=== PATIENT | male | born 1955 | race Asian ===

== ENCOUNTER 2018-03-23 22:10 | Inpatient (IN) | payer SELFPAY ==
[~2018-03-23] VITALS: Ht 180.3 cm; Wt 111.1 kg
[~2018-03-23 22:10] MED LIST: SUCRALFATE
[2018-03-23] MEDS ORDERED: SODIUM CHLORIDE 0.9% 1,000 ML IV ONE (22:55)
[2018-03-23] MEDS ORDERED: ONDANSETRON HCL 4MG/2ML INJ IV STA (22:55)
[2018-03-23] MEDS ORDERED: MORPHINE SULFATE 4 MG/ML CPJ (NOT FOR IM USE) IV STA (22:55)
[2018-03-23] MEDS ORDERED: ASPIRIN 81MG TABLET PO ONE (23:00)
[2018-03-23] MEDS ORDERED: NITROGLYCERIN 0.4MG TABLET SL SL PRN (23:00)
[2018-03-23 23:27] LABS: BASOPHILS % 0.7 % (0.0-2.0); EOSINOPHILS % 0.8 % (0.0-5.0); HEMATOCRIT. 45.3 % (42.0-52.0); HEMOGLOBIN. 14.9 g/dL (14.0-18.0); LYMPHOCYTES % 23.7 % (20.0-50.0); MEAN CORPUSCULAR HEMOGLOBIN 27.9 pg (28.0-32.0); MEAN CORPUSCULAR VOLUME 84.7 fL (80.0-94.0); MEAN PLATELET VOLUME 8.6 fl (7.4-10.4); MONOCYTES % 10.3 % (2.0-8.0); NEUTROPHILS % 64.5 % (40.0-76.0); PLATELET 319 x1000/uL (130-400); RED BLOOD CELL COUNT 5.35 mill/uL (4.7-6.1); RED CELL DISTRIBUTION WIDTH 14.3 % (11.6-14.6)
[2018-03-23 23:33] LABS: CHLORIDE 96 mEq/L (98-107)
[2018-03-23 23:43] LABS: D-DIMER < 0.19 mg/L FEU (<0.50); PARTIAL THROMBOPLASTIN TIME 28.2 sec (23.4-31.0); PROTHROMBIN TIME 10.2 sec (9.1-11.1)
[2018-03-24] MEDS ORDERED: CLONIDINE 0.1MG TABLET PO PRN (01:15)
[2018-03-24] MEDS ORDERED: ACETAMINOPHEN 325MG TABLET PO PRN (01:15)
[2018-03-24] MEDS ORDERED: ENOXAPARIN 40MG/0.4ML SYR SUBCUT SCH (01:15)
[2018-03-24] MEDS ORDERED: POTASSIUM CHLORIDE 20MEQ TABLET SR PO PRN ×2 (01:15→04:15)
[2018-03-24] MEDS ORDERED: ONDANSETRON HCL 4MG/2ML INJ IV PRN (01:15)
[2018-03-24 02:31] LABS: CHLORIDE 101 mEq/L (98-107)
[2018-03-24] MEDS ORDERED: DEXTROSE 50% WATER 50ML SYRINGE IV PRN ×2 (04:00→04:15)
[2018-03-24] MEDS ORDERED: ONDANSETRON 4MG ODT PO PRN (04:15)
[2018-03-24 05:15] VITALS: BP 112/70
[2018-03-24] MEDS: BLOOD SUGAR DIAGNOSTIC STRIP TEST SCH ×4 (05:42→20:10)
[2018-03-24] MEDS: INSULIN LISPRO 100 UNITS/ML SUBCUT SCH ×4 (06:00→21:32)
[2018-03-24 08:00] VITALS: BP 112/72
[2018-03-24] MEDS ORDERED: INSULIN LISPRO 100 UNITS/ML SUBCUT SCH (08:20)
[2018-03-24] MEDS ORDERED: ATORVASTATIN CALCIUM 20MG TABLET PO SCH (09:00)
[2018-03-24] MEDS: ENOXAPARIN 30MG/0.3ML SYR SUBCUT SCH ×2 (09:00→20:08)
[2018-03-24] MEDS ORDERED: BLOOD SUGAR DIAGNOSTIC STRIP TEST SCH (09:00)
[2018-03-24 12:00] VITALS: BP 127/84
[2018-03-24 15:03] LABS: *AMPHETAMINES SCREEN URINE NEGATIVE (NEGATIVE); *BARBITURATES SCREEN URINE NEGATIVE (NEGATIVE)
[2018-03-24 15:04] LABS: *BENZODIAZEPINES SCREEN URINE NEGATIVE (NEGATIVE); *COCAINE SCREEN URINE NEGATIVE (NEGATIVE); CANNABINOID URINE SCREEN NEGATIVE (NEGATIVE); METHADONE URINE SCREEN NEGATIVE (NEGATIVE); OPIATES URINE SCREEN PRESUMTIVE POSITIVE (NEGATIVE); PHENCYCLIDINE URINE SCREEN NEGATIVE (NEGATIVE)
[2018-03-24 16:00] VITALS: BP 113/69
[2018-03-24 20:00] VITALS: BP 132/80
[2018-03-24] MEDS: ATORVASTATIN CALCIUM 20MG TABLET PO SCH (20:06)
[2018-03-25] VITALS: BP 127/75
[2018-03-25 04:00] VITALS: BP 120/75
[2018-03-25 08:00] VITALS: BP 131/78
[2018-03-25] MEDS: BLOOD SUGAR DIAGNOSTIC STRIP TEST SCH ×4 (08:21→21:13)
[2018-03-25] MEDS: INSULIN LISPRO 100 UNITS/ML SUBCUT SCH ×5 (08:43→21:43)
[2018-03-25] MEDS: ENOXAPARIN 30MG/0.3ML SYR SUBCUT SCH ×2 (08:44→21:37)
[2018-03-25 12:00] VITALS: BP 107/65
[2018-03-25] MEDS ORDERED: INSULIN LISPRO 100 UNITS/ML SUBCUT SCH (14:45)
[2018-03-25 16:00] VITALS: BP 102/63
[2018-03-25 20:00] VITALS: BP 139/72
[2018-03-25] MEDS: ATORVASTATIN CALCIUM 20MG TABLET PO SCH (21:37)
[2018-03-25] MEDS: IBUPROFEN 800MG TABLET PO PRN (21:47)
[2018-03-25] MEDS ORDERED: INSULIN GLARGINE UD 100 UNITS/ML SYR SUBCUT SCH (22:00)
[2018-03-26] VITALS: BP 119/80
[2018-03-26 04:00] VITALS: BP 106/71
[2018-03-26] MEDS: IBUPROFEN 800MG TABLET PO PRN ×2 (06:53→06:56)
[2018-03-26] MEDS: BLOOD SUGAR DIAGNOSTIC STRIP TEST SCH ×2 (06:56→13:16)
[2018-03-26 08:00] VITALS: BP 112/76
[2018-03-26] MEDS: ENOXAPARIN 30MG/0.3ML SYR SUBCUT SCH (08:19)
[2018-03-26] MEDS: INSULIN LISPRO 100 UNITS/ML SUBCUT SCH ×4 (08:21→13:17)
[2018-03-26 14:22] VITALS: BP 123/65
== END 2018-03-26 16:14 | disposition home or self-care (01) | DRG 203 ==
LOC: ER 22:10 → EDBEDREQTM 03-24 00:21 → EDBEDREQ 03-24 00:21 → 7WST 03-24 03:35 → ENRESERV 03-24 03:35 → ER 03-24 04:00
PROVIDERS: ADMIT Emergency Medicine; ATTEND Emergency Medicine
DX: R07.9 Chest pain, unspecified (principal); E11.65 Type 2 diabetes mellitus with hyperglycemia; E78.5 Hyperlipidemia, unspecified; F17.210 Nicotine dependence, cigarettes, uncomplicated; I45.10 Unspecified right bundle-branch block; M75.52 Bursitis of left shoulder; Z82.49 Family history of ischemic heart disease and other diseases of the circulatory system; Z83.3 Family history of diabetes mellitus; I10 Essential (primary) hypertension; Z79.84 Long term (current) use of oral hypoglycemic drugs
CPT/HCPCS: 36415; 71045; 73030; 80048; 80053; 80061; 80305; 82962; 83036; 83735; 83880; 84484; 85025; 85379; 85610; 85730; 93005; 93306; 96361; 96374; 96375; 99285; 99406; J1650; J1815; J2270; J2405; J7030; Q0162